=== PATIENT | male | born 1950 | race Caucasian/White ===

== ENCOUNTER → 2024-09-24 | Outpatient (CLI) | payer MEDICARE ==
[2024-09-24 13:55] LABS: HEMATOCRIT 39.5 % (42.0-52.0); MEAN CORPUSCULAR HEMOGLOBIN 30.9 pg (27.0-33.0); MEAN CORPUSCULAR HGB CONC 32.9 g/dl (32.0-36.5); MEAN CORPUSCULAR VOLUME 93.8 fl (80.0-96.0); PLATELET COUNT, AUTOMATED 194 10^3/uL (150-450); RED BLOOD COUNT 4.21 10^6/uL (4.30-6.10); WHITE BLOOD COUNT 7.1 10^3/uL (4.0-10.0)
[2024-09-24 14:17] LABS: HEMOGLOBIN A1c 5.3 % (4.0-6.0)
[2024-09-24 14:20] LABS: ALKALINE PHOSPHATASE 50 U/L (40-129); ALT/SGPT 17 U/L (7.0-40); AST/SGOT 12 U/L (<34); BILIRUBIN,TOTAL 0.7 MG/DL (0.3-1.2); BLOOD UREA NITROGEN 28 MG/DL (9-23); CALCIUM LEVEL 8.9 MG/DL (8.3-10.6); CARBON DIOXIDE LEVEL 28 MMOL/L (20-31); CHLORIDE LEVEL 107 MMOL/L (98-107); CHOLESTEROL LEVEL 162 MG/DL (<200); CHOLESTEROL RISK RATIO 3.19 (<5); CREATININE FOR GFR 0.73 MG/DL (0.70-1.30); GLOMERULAR FILTRATION RATE > 90.0 (>42); GLUCOSE, FASTING 73 MG/DL (74-106); HDL CHOLESTEROL 50.7 MG/DL (>40); LDL CHOLESTEROL 96.5 MG/DL (<100); NON-HDL-C 111.3 MG/DL; POTASSIUM SERUM 3.8 MMOL/L (3.5-5.1); SODIUM LEVEL 141 MMOL/L (136-145); TOTAL PROTEIN 7.2 G/DL (5.7-8.2); TRIGLYCERIDES LEVEL 74 MG/DL (<150)
[2024-09-24 14:21] LABS: FREE T4 1.51 NG/DL (0.89-1.76); THYROID STIMULATING HORMONE 0.756 uIU/ML (0.55-4.78)
[2024-09-24 14:22] LABS: TOTAL 25(OH) VITAMIN D 30.5 NG/ML (20.0-100.0)
== END ==
LOC: M LAB 12:46
PROVIDERS: ATTEND Student in an Organized Health Care Education/Training Program
DX: E03.9 Hypothyroidism, unspecified (principal); Z13.820 Encounter for screening for osteoporosis; Z68.29 Body mass index [BMI] 29.0-29.9, adult

== ENCOUNTER → 2024-10-08 | Outpatient (CLI) | payer MEDICARE | LOC: M WHC 12:35 | PROVIDERS: ATTEND Student in an Organized Health Care Education/Training Program | DX: M85.89 Other specified disorders of bone density and structure, multiple sites (principal) ==

== ENCOUNTER → 2024-12-21 | Outpatient (REF) | payer MEDICARE ==
[2024-12-21 14:36] LABS: BASO # 0.0 10^3/uL (0.0-0.2); BASO % 0.2 % (0.0-1.0); EOS # 0.1 10^3/uL (0.0-0.5); EOS % 1.9 % (0.0-3.0); LYMPH # 1.1 10^3/uL (1.5-5.0); LYMPH % 19.2 % (24.0-44.0); MONO # 0.6 10^3/uL (0.0-0.8); MONO % 9.6 % (2.0-8.0); NEUTROPHILS # 4.0 10^3/uL (1.5-8.5); NEUTROPHILS % 68.6 % (36.0-66.0); PLATELET COUNT, AUTOMATED 214 10^3/uL (150-450)
[2024-12-21 16:13] LABS: IRON (FE) 66.0 UG/DL (65-175); PERCENT SATURATION 18.5 % (19.7-50.0)
[2024-12-21 16:14] LABS: CHOLESTEROL LEVEL 185.0 MG/DL (<200); CHOLESTEROL RISK RATIO 3.44 (<5); LDL CHOLESTEROL 115.7 MG/DL (<100); NON-HDL-C 131.3 MG/DL; TRIGLYCERIDES LEVEL 78.0 MG/DL (<150)
[2024-12-21 16:16] LABS: VITAMIN B12 LEVEL 645.0 PG/ML (211-911)
== END ==
LOC: M LAB REF 09:40
PROVIDERS: ATTEND Student in an Organized Health Care Education/Training Program
DX: E03.9 Hypothyroidism, unspecified (principal); Z91.89 Other specified personal risk factors, not elsewhere classified; D64.9 Anemia, unspecified